=== PATIENT | female | born 1995 | race Caucasian/White ===

== ENCOUNTER 2021-05-19 08:31 | Emergency (ER) | payer OTHER, SELFPAY ==
--- NOTE | 2021-05-19 08:32 | ED.URI ---
HPI - URI/Sore Throat General Chief Complaint: Upper Respiratory Infection Stated Complaint: sore throat Time Seen by Provider: 05/19/21 08:45 Source: patient Mode of arrival: ambulatory Limitations: no limitations History of Present Illness HPI Narrative: Ms. Van is a 25-year-old female patient presenting to the clinic today with complaints of sore throat x1 day. She reports this started approximately about 230 this morning. Is having pain with swallowing mostly on the right side of her throat. Also has a fever of 38.2 ?C today in the clinic. She denies drooling or any difficulty swallowing however it is very painful. No known exposure to strep pharyngitis. She denies any cough or nasal drainage. Denies any known exposure to influenza or Covid. MD elicited complaint: fever and sore throat Related Data Allergies Allergy/AdvReac Type Severity Reaction Status Date / Time No Known Allergies Allergy Verified 05/19/21 08:51 Review of Systems Review of Systems: Pertinent positives per HPI. Patient denies any rash, headache, visual changes, dizziness, cough, shortness of breath, chest pain, palpitations, nausea, vomiting, diarrhea, constipation, abdominal pain, or any urinary issues. PMFSH Comments At the time of my signature, I reviewed and agree with the nursing past medical, surgical, social, and family history. There is no relevant family history pertinent to the patient complaint. Exam Narrative: General: Well-developed, overweight, in no apparent distress Head: Normocephalic, atraumatic Eyes: Pupils equally round and reactive to light bilaterally, EOM intact, sclera and conjunctive clear, no discharge, lids normal Ears: TMs intact and clear, ear canals clear, no drainage, grossly hearing normal. Nose: Nares patent, no discharge, no inflammation, no sinus tenderness. Mouth: Oral pharynx without lesions or masses, good dentition, MMM. Oropharynx red, 2+ bilateral tonsillar swelling with exudate to the right tonsil. Uvula midline and has even rise and fall. Centor criteria 3 out of 4. Neck: Supple, trachea midline, no palpable enlargement of anterior or posterior cervical nodes, no thyroid masses or goiter palpable. Cardio: Regular rate and rhythm, s1 and s2 normal, no murmur appreciated. Resp: Clear to auscultation bilaterally, no rhonchi, rales, wheezing or rubs Course Course Emergency Course: Portions of this record may have been created with voice recognition software. Level of Care: Express Care Visit Vital Signs Vital signs: Vital signs reviewed MDM - URI/Sore Throat MDM Narrative Medical decision making narrative: At the time of assessment patient appears mildly ill. Has muffled voice and is complaining of a severe sore throat. She does have a fever in the clinic today no known exposure to anyone with Covid or influenza. Reports that her daughter is also home sick with a sore throat. Centor criteria was 3 out of 4 so a strep screen was obtained and was positive. Patient was given a shot of Rocephin 1 g IM in the clinic and was given a prescription for amoxicillin to take at home. Supportive measures was discussed with patient and she voiced understanding. Differential Diagnosis Differential diagnosis: Likely upper respiratory infection, otitis media, sinusitis, viral infection, influenza and pharyngitis Discharge Plan Discharge Clinical Impression: Acute streptococcal pharyngitis Patient Disposition: Home, Self-Care Condition: Stable Instructions: Antibiotic Form, Strep Throat (ED) Additional Instructions: Take prescription medications only as prescribed Rocephin 1 g IM given in the clinic today Start amoxicillin tonight at 9pm. Change toothbrush in 24 hours after the start of the antibiotic. Increase fluids and stay well hydrated Tylenol/motrin for pain/fever Cepacol spray, cough drops, throat lozenges, warm tea with honey/lemon, gargle salt water to soothe throat May re
[2021-05-19 08:42] VITALS: BP 141/65; PULSE 95; RESP 16; TEMP 38.2; O2SAT 99
[2021-05-19] MEDS: cefTRIAXone 1 GM, LIDOCAINE HCL 1% LOCAL INJ 2.1 ML IM (09:01)
== END 2021-05-19 09:27 | disposition home or self-care (01) ==
PROVIDERS: Emergency Provider Nurse Practitioner Family
DX: J02.0 Streptococcal pharyngitis (principal)
CPT/HCPCS: 87880; 96372; 99213; G0463; J0696

== ENCOUNTER 2021-06-06 04:32 | Emergency (ER) | payer OTHER, SELFPAY ==
[2021-06-06 04:39] VITALS: BP 126/77; PULSE 90; RESP 16; TEMP 36.1; O2SAT 100
--- NOTE | 2021-06-06 04:55 | PC.NURSE ---
ERP in to examine pt. Explained that due to issues with the tendon an x-ray would be unable to show what was happening to the ankle. Pt asked how she could get an MRI. RN explained that process goes through occupational health at work as well as a primary physician. Pt still tearful at this time.
--- NOTE | 2021-06-06 04:56 | ED_ITS ---
HPI - Extremity Injury (Lower) General Chief Complaint: Extremity Injury, Lower Stated Complaint: L Heel injury Time Seen by Provider: 06/06/21 04:42 Source: patient Mode of arrival: ambulatory Limitations: no limitations History of Present Illness HPI Narrative: Patient is a 35-year-old female complaining of left Achilles tendon pain, 10, dull, aching, nonradiating started after a box fell on it this morning at work. Patient denies any other pain or injury. Patient states that she had a left Achilles tendon surgery back in 2013. Related Data Allergies Allergy/AdvReac Type Severity Reaction Status Date / Time No Known Allergies Allergy Verified 06/06/21 04:45 Review of Systems Review of Systems: Per HPI All systems reviewed & are unremarkable except as noted in HPI and below PMFSH Comments Past medical history: None Family history: Unknown Social history: Non-smoker no EtOH or drug use Exam Const: General: no acute distress and alert Orientation/consciousness: patient oriented x3 HENMT: Head: normal to inspection Eyes: Conjunctivae: conjunctivae normal Neck: Neck: normal visual inspection Resp: Effort & Inspection: normal respiratory effort Skin: General skin exam: normal color Rashes: no rashes Neuro: General: patient oriented x3 and moves all extremities Extrem: General: normal to inspection Other: No deformity of the left lower extremity. Negative for any swelling or redness of the left lower extremity. Negative for calf pain or swelling. Tenderness on palpation of the left Achilles tendon. Neurovascular is intact. Course Vital Signs Vital signs: Vital Signs Temperature 36.1 C L 06/06/21 04:39 Pulse Rate 90 06/06/21 04:39 Respiratory Rate 16 06/06/21 04:39 Blood Pressure 126/77 06/06/21 04:39 Pulse Oximetry 100 06/06/21 04:39 Temperature 36.1 C L 06/06/21 04:39 Pulse Rate 90 06/06/21 04:39 Respiratory Rate 16 06/06/21 04:39 Blood Pressure 126/77 06/06/21 04:39 Pulse Oximetry 100 06/06/21 04:39 Discharge Plan Discharge Clinical Impression: Achilles tendon injury Patient Disposition: Home, Self-Care Condition: Stable Instructions: Muscle Strain (ED) Prescriptions: New cyclobenzaprine 10 mg tablet 10 mg PO TID PRN (Reason: muscle spasm) Qty: 9 RF: 0 naproxen [Naprosyn] 500 mg tablet 500 mg PO BID PRN (Reason: pain) Qty: 10 RF: 0 No Action amoxicillin 500 mg capsule 500 mg PO Q12H 10 Days Qty: 20 RF: 0 Follow-up/Referrals: PHYSICIAN,PAINT SPRAYING MACHINE OPERATOR HELPER [Primary Care Provider] - Time of Disposition: 05:00
== END 2021-06-06 05:16 | disposition home or self-care (01) ==
PROVIDERS: Emergency Provider Emergency Medicine
DX: S86.002A Unspecified injury of left Achilles tendon, initial encounter (principal); W20.8XXA Other cause of strike by thrown, projected or falling object, initial encounter
CPT/HCPCS: 99283

== ENCOUNTER 2022-09-12 18:48 | Emergency (ER) | payer BC, MEDICAID, SELFPAY ==
[2022-09-12 18:52] VITALS: BP 119/72; PULSE 64; RESP 18; TEMP 36.3; O2SAT 100
== END 2022-09-12 19:00 | disposition left against medical advice (07) ==
DX: R23.3 Spontaneous ecchymoses (principal)
CPT/HCPCS: 99199

== ENCOUNTER 2024-09-12 19:17 | Emergency (ER) | payer OTHER, SELFPAY ==
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
--- NOTE | 2024-09-12 19:26 | PC.NURSE ---
Pt visualized dancing in the room, yelling at staff stating you can't touch me repeatedly.
--- OUTSIDE RECORDS SUMMARY | 2024-09-12 19:33 | XMS_ITS | Patient Health Record ---
Author Organization [facility] Address [address] [place] [address] Care Team Providers Care Global Marketing Coordinator Name Role Phone FernandasangLuisito streetie Primary Care Provider [phone] Allergies No Known Allergies Reason For Referral No Information Medications Medication SIG (Take, Route, Frequency, Duration) [...] her please. Thank you Active Social History Tobacco Use: Social History Observation Description Date Details (start date - stop date) Unknown Sex Assigned At : Social History Observation Description Sex Assigned At Female Dont use, Tobacco Use/Smoking Question Answer Notes Are you a Uses tobacco in other forms Additional Findings: Tobacco User e-Cigarette Alcohol Screen (Audit-C) Question Answer Notes Did you have a drink containing alcohol in the p ast year? No Section Notes: PRESCRIPTION # FILLED WRITTEN DRUG LABEL QTY DAYS STRENGTH MEDD PRESCRIBER PHARMACY REFILL NO. REFILLS STATE 12/22/2021 11/17/2021 Pregabalin 60.0 30 75 MG NA Sanzalone Magdy S Md - [id number] [id number], [place], [place] NA 5 [place] 1 [id number] 11/17/2021 11/17/2021 Pregabalin 60.0 30 75 MG NA Valerie Ruggiero [id number] PRESCRIPTION # FILLED WRITTEN DRUG LABEL QTY DAYS STRENGTH MEDD PRESCRIBER PHARMACY REFILL NO. REFILLS STATE 12/22/2021 11/17/2021 Pregabalin 60.0 30 75 MG NA Valerie Ruggiero [id number] [id number], [place], [place] NA 5 [place] 1 [id number] 11/17/2021 11/17/2021 Pregabalin 60.0 30 75 MG NA Valerie Ruggiero [id number] [place] recent [place] Problems Problem Type SNOMED Code ICD Code Onset Dates Problem Status W/U Status Risk Notes Problem Morbid obesity (disorder) (411241431) Morbid (severe) obesity due to excess calories (E66.01) Active confirmed Problem Tobacco user (058218071) Nicotine dependence, unspecified, uncomplicated (F17.200) Active confirmed Problem Calcium deposits in tendon (671799242) Calcific tendinitis, 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) Active confirmed Problem Gastroesophageal reflux disease (698359433) GERD (gastroesophagea l reflux disease) (K21.9) Active confirmed Problem Vitamin D deficiency (85862429) Vitamin D insufficiency (E55.9) Active confirmed Problem Anxiety (03673103) Anxiety (F41.9) Active confi rmed Problem Pain (44138622) Pain (R52) Active confirmed Problem Follow-up status (962319726) Follow up (Z09) Active confirmed Problem Obesity (095042093) Obesity, unspecified classification, unspecified obesity type, unspecified whether serious comorbidity present (E66.9) Active confirmed Problem Calcaneal spur (88938010) Calcaneal spur, left (M77.32) Active confirmed Plan Of Treatment No Information Insurance Providers Payer Name Payer Address Payer Phone Subscriber Number Group Number Insured Name Patient Relationship to Insured Coverage Start Date Coverage End Date MEDICAID [address] [place] [address] [id number] Lelo Mcintosh Self - patient is the insured 2 [facility] [employer] [address] [place] [phone] [id number] Lelo Mcintosh Self - patient is the insured 2 2 [facility] [employer] Tele[employer] [address] [place] [address] [id number] Lelo Mcintosh Self - patient is the insured 2 2 [employer] [address] [place] [address] [id number] Lelo Mcintosh Self - patient is the insured 2 [facility] [address] [place] [address] [id number] Lelo Mcintosh Self - patient is the insured 4 4 Medical (General) History Medical History History ICD Code pain achilles tendinitis Surgical History Surgery Date(Month/Year) Tubal ligation 2016 Hospitalization History Reason Date(Month/Year) Child 2013, 2016 Depression 2018
--- OUTSIDE RECORDS SUMMARY | 2024-09-12 19:33 | XMS_ITS ---
Author Organization [facility] Address [address] [place] [address] Care Team Providers Care Operator And Truck Driver Name Role Phone Hoda Bradley Primary Care Provider [phone] REASON FOR VISIT last seen 07/2022; needs 40 min Social History Sex Assigned At : Social History Observation Description Sex Assigned At Female Encounters Encounter Location Date Provider Diagnosis [facility] [address] [address] 08/20/2024 Hoda Bradley Plan Of Treatment No Information Progress Notes * Lelo MCINTOSHDOB: [birth year] (29 yo F)Acc No.[id number]:08/20/2024 UNLOCKED PROGRESS NOTE Progress Notes Patient: Lelo CHAIDEZ Provider: ADOLFO Escobedo, PAPER GOODS MACHINE OPERATOR, END USER SUPPORT SPECIALIST-BC, END USER SUPPORT SPECIALIST-C :1995 A ge:29 Y S ex:Female Date:08/20/2024 Address:[address] [place] [address] Subjective: * Chief Complaints: * 1 . Last seen 07/2022; needs 40 min. * Medical History: Objective: * Vitals: Assessment: Plan: * Treatment: * * Electronic signature of Sarthak Bradley APRN, [id number] on 09/12/2024 at 07:33 PM CDT Sign off status: Pending * Provider: Venkata Bradley, MSN, PAPER GOODS MACHINE OPERATOR, END USER SUPPORT SPECIALIST-BC, END USER SUPPORT SPECIALIST-C Date: 0 08/20/2024 Generated for Printing/Faxing/eTransmitting on: 0 09/12/2024 07:33 PM CDT
--- OUTSIDE RECORDS SUMMARY | 2024-09-12 19:33 | XMS_ITS ---
Author Organization [facility] Address [address] [place] [address] Care Team Providers Care Tool Room Attendant Name Role Phone Hoda Bradley Primary Care Provider [phone] Jessica Anne Unavailable [phone] REASON FOR VISIT 1 Month Psych F/U [...] Female Encounters Encounter Location Date Provider Diagnosis [address] [address] 06/22/2023 Jessica Anne Plan Of Treatment No Information Progress Notes * Lelo MCINTOSHDOB: [birth year] (29 yo F)Acc No.[id number]:06/22/2023 UNLOCKED PROGRESS NOTE Patient: Mel RICELelo HORVATH Provider: Hoa Anne, MSN, SERVER SERVICE ASSISTANT-, [facility] :1995 A ge:27 Y S ex:Female Date:06/22/2023 Address:[address] [place], [place] [id number] Pcp:Hoda Bradley Subjective: * Chief Complaints: * [...] * Electronic signature of Jessica Anne , [id number] on 09/12/2024 at 07:33 PM CDT Sign off status: Pending * Provider: ADOLFO Guajardo, SERVER SERVICE ASSISTANT-, PMHNP- Date: 0 06/22/2023 Generated for Durga domínguez/Karlos/Anthony on: 0 09/12/2024 07:33 PM CDT
--- OUTSIDE RECORDS SUMMARY | 2024-09-12 19:33 | XMS_ITS | Clinical Summary ---
Author Organization [facility] Address [address] [place] [address] Care Team Providers Care Corrosion Technician Name Role Phone Tiara Pacheco MD Primary Care Provider [phone] Tiara Pacheco MD Unavailable Source Comments [facility],non-owned Affiliates and Associated Physician Practices is amultiple site organization consisting of ambulatory clinics and hospital sitesin [place], [place], [place] and [place]. This disclosure is being madepursuant to the Care Everywhere program and may not contain all information available regarding this patient. Last updated 17.[facility] Allergies No known active allergies Medications * Be aware that medications may not be up to date on this document. Alwaysverify current medications with the patient. lurasidone (LATUDA) 80 MG tablet Take 50 mg by mouth daily with breakfast Active sertraline (ZOLOFT) 100 MG tablet Take 150 mg by mouth once daily Active lithium carbonate (LITHOTABS) 300 MG tablet Take 300 mg by mouth 3 times daily Active traZODone (DESYREL) 50 MG tablet Take 50 mg by mouth at bedtime Active Active Problems Problem Noted Date Diagnosed Date Overdose, drug 08/23/2010 Overview (08/24/2010): Pt is transferred from OSH ([facility]) after taking an intentional overdose last night of her Geodon (about 10-15 pills taken) and of Tegretol (20- 30 pills). Her UDS also was positive for TCAs, but pt denies taking these and mom denies her having access to any of these meds and poision control confirmed that this could be false positive from tegretol. Pt denies having suicidal or homicidal ideation or plans at this time, but says she did want to kill herself last night. Tegretol can cause neuromuscular symptoms and dystonias and has a half life of 25-65 hrs. Tegretol can be measured with a carbamazepine level (20 at OSH) and 18 last evening and 9.8 this am. Geodon can cause a rise in LFTs and has a half life of 7 hours. Pt appears to be medically stable this morning. She will be transferred to [facility] today and be under the care of her psychiatrist, Dr. Underwood. Plan: -social work and psych to see her in the AM to determine group home plan- mom does not want to bring her home at first- social work and psych working on placement - Sitter 24hrs until discharge - CMP, CBC, Carbazapine level and EKG in the AM to monitor for any side effects from the overdose- levels are decreased and lab work is all normal as is EKG -Spoke with the lab and positive TCA can be caused by tegretol ingestion, which explains the UDS - benadryl PRN for dystonias - UA with culture due to belly pain and elevated wbc- WBC could be related to drug overdose- UA looks ok, so culture not done Family History Medical History Relation Name Comments Bipolar Disorder Maternal Aunt Relation Name Status Comments Maternal Aunt Social History Tobacco Use Types Packs/Day Years Used Date Smoking Tobacco: Former Smokeless Tobacco: Never Alcohol Use Standard Drinks/Week Comments No 0 (1 standard drink = 0.6 oz pur e alcohol) Comments No Sex and Gender Information Value Date Recorded Sex Assigned at Not on file Legal Sex Female 11:59 AM LAP GRINDER Gender Identity Female 01/23/2018 12:21 PM LAP GRINDER Sexual Orientation Not on file Last Filed Vital Signs Vital Sign Reading Time Taken Comments Blood Pressure 110/76 01/23/2018 1:02 PM LAP GRINDER Pulse 79 01/23/2018 1:02 PM LAP GRINDER Temperature 36.8 C (98.2 F) 01/23/2018 1:02 PM LAP GRINDER Respiratory Rate 18 01/23/2018 1:02 PM LAP GRINDER Oxygen Saturation 99% 01/23/2018 1:02 PM LAP GRINDER Inhaled Oxygen Concentration - - Weight 98.4 kg (217 lb) 01/23/2018 1:02 PM LAP GRINDER Height 162.6 cm (5' 4) 01/23/2018 1:02 PM LAP GRINDER Body Mass Index 37.25 01/23/2018 1:02 PM LAP GRINDER Plan of Treatment Health Maintenance Due Date Last Done Comments HIV SCREENING 2009 HEPATITIS C SCREENING 07/25/2012 DTAP/TDAP/TD VACCINES (1 - Tdap) 2013 HEPATITIS B VACCINE (1 of 3 - 19+ 3-dose series) 2013 HPV VACCINE (1 - 3-dose SCDM series) 2021 COVID-19 VACCINE (1 - 2023-2 5 season) 2023 DEPRESSION SCREENING 02/14/2024 INFLUENZA VACCINE (#1) 2024 ZOSTER VACCINE (1 of 2) 2044 HIB VACCINE Aged Out No longer eligi ble based on patient's age to complete this topic MENINGOCOCCAL (Group B) VACC INE SHARED DECISION-MAKING Aged Out No longer eligibl e based on patient's age to complete this topic MENINGOCOCCAL GROUPS A/C/Y/W VACCINE Aged Out No longer eligible b ased on patient's age to complete this topic PNEUMOCOCCAL VACCINE Aged Out No long er eligible based on patient's age [place] [address] [place] [facility] PAYOR GENERIC Care Teams Corrosion Technician Relationship Specialty Start Date End Date Tiara Pacheco MD [address] [place] [address] PCP - General 04/15/21 Tiara Pacheco MD [address] [place] [id number] Family Medicine 04/15/21
--- OUTSIDE RECORDS SUMMARY | 2024-09-12 19:33 | XMS_ITS ---
Author Organization [facility] Address [address] [place] [address] Care Team Providers Care Production Supervisor Trainee Name Role Phone Hoda Bradley Primary Care Provider [phone] Jessica Anne Unavailable [phone] REASON FOR VISIT 1 Month Psych F/U [...] Female Encounters Encounter Location Date Provider Diagnosis [address] [place] [address] 08/21/2023 Jessica Anne Plan Of Treatment No Information Progress Notes * Lelo MCINTOSHDOB: [birth year] (29 yo F)Acc No.[id number]:08/21/2023 UNLOCKED PROGRESS NOTE Patient: Mel Lelo MORRISON Provider: Hoa Anne, MSN, TRACTOR DRIVER TEAMSTER-, P[facility]- :1995 A ge:28 Y S ex:Female Date:08/21/2023 Address:[address] [place], [place] [id number] Pcp:Hoda Bradley Subjective: * Chief Complaints: * [...] * Electronic signature of Jessica Anne , [id number] on 09/12/2024 at 07:33 PM CDT Sign off status: Pending * Provider: ADOLFO Guajardo, TRACTOR DRIVER TEAMSTER-, PMHNP- Date: 0 08/21/2023 Generated for Durga domínguez/Karlos/Anthony on: 09/12/2024 07:33 PM CDT
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
--- NOTE | 2024-09-12 21:24 | PC.NURSE ---
pt was A+Ox4 and walked out of ED with a steady gait
== END 2024-09-12 21:39 | disposition home or self-care (01) ==
PROVIDERS: Emergency Provider Emergency Medicine
DX: F10.129 Alcohol abuse with intoxication, unspecified (principal); Y90.9 Presence of alcohol in blood, level not specified
CPT/HCPCS: 99283; J2312

== ENCOUNTER 2024-11-15 08:51 | Emergency (ER) | payer OTHER, SELFPAY ==
--- OUTSIDE RECORDS SUMMARY | 2023-06-19 05:20 | XMS_ITS ---
Author Organization [facility] Address [address] [place] [address] Care Team Providers Care Insect Control Aide Name Role Phone Hoda Bradley Primary Care Provider Jessica Anne Unavailable [phone] REASON FOR VISIT 1 Month Psych F/U & Med Refill Social History Sex Assigned At : Social History Observation Description Sex Assigned At Female Encounters Encounter Location Date Provider Diagnosis [address] [address] 06/19/2023 Jessica Anne Plan Of Treatment Next Appt Details Provider Name:Dena Sandy Marr va, 11/19/2024 10:00:00 AM, [address] [place] [address], [address], Progress Notes * Lelo MCINTOSHDOB: [birth year] (29 yo F)Acc No.[id number]:06/19/2023 UNLOCKED PROGRESS NOTE Patient: Mel MORRISON Lelo Provider: Hoa Anne, MSN, LIBRARY CONSULTANT-BC, PMHNP-BC :1995 A ge:27 Y S ex:Female Date:06/19/2023 Address:[address] [place] [address] Pcp:Hoda Bradley Subjective: * Chief Complaints: * 1 . 1 Month Psych F/U & Med Refill. * Medical History: Objective: * Vitals: Assessment: Plan: * Treatment: * * Electronic signature of Jessica Anne , [id number] on 11/15/2024 at 09:32 AM CDT Sign off status: Pending * Provider: Hoa Anne, MSN, LIBRARY CONSULTANT-BC, PMHNP-BC Date: 0 06/19/2023 Generated for Durga domínguez/Karlos/Anthony on: 1 09:32 AM CDT
--- OUTSIDE RECORDS SUMMARY | 2023-06-22 03:20 | XMS_ITS ---
Author Organization formerly [facility] Address [address] [place] [address] Care Team Providers Care Rehab Liaison Name Role Phone Hoda Bradley Primary Care Provider [phone] Jessica Anne Unavailable [phone] REASON FOR VISIT 1 Month Psych F/U & Med Refill Medications Medication SIG (Take, Route, Frequency, Duration) Notes Start Date End Date Status Zoloft 100 MG 1 tablet (for a total of 150mg) Orally Once a day; Duration: 30 days Pt is requesting the medications to be mailed to her please. Thank you Active Vistaril 50 MG 1 capsule as needed Orally four times a day as needed for anxiety; Duration: 30 days Pt is requesting the medications to be mailed to her please. Thank you Active Zoloft 50 MG 1 tablet (for a total of 150mg) Orally Once a day; Duration: 30 days Pt is requesting the medications to be mailed to her please. Thank you Active Propranolol HCl 20 MG 1 tablet Orally Twice a day; Duration: 30 days Pt is requesting the medications to be mailed to her please. Thank you Active Social History Sex Assigned At : Social History Observation Description Sex Assigned At Female Encounters Encounter Location Date Provider Diagnosis [facility] [address] [place] [address] 06/22/2023 Jessica Anne Plan Of Treatment Next Appt Details Provider Name:Dena Marr nd, 11/19/2024 10:00:00 AM, [address], [place], [address], Progress Notes * Lelo MCINTOSHDOB: [birth year] (29 yo F)Acc No.[id number]:06/22/2023 UNLOCKED PROGRESS NOTE Patient: Lelo CHAIDEZ Provider: Hoa Anne, MSN, PROFESSIONAL NURSE-BC, PMHNP-BC :1995 A ge:27 Y S ex:Female Date:06/22/2023 Address:[address] [place] [address] Pcp:Hoda Bradley Subjective: * Chief Complaints: * 1 . 1 Month Psych F/U & Med Refill. * Medical History: * Medications: T aking Zoloft 100 MG Tablet 1 tablet (for a total of 150mg) Orally Once a day , Notes to Pharmacist: Pt is requesting the medications to be mailed to her please. Thank you, Taking Vistaril 50 MG Capsule 1 capsule as needed Orally four times a day as needed for anxiety , Notes to Pharmacist: Pt is requesting the medications to be mailed to her please. Thank you, Taking Zoloft 50 MG Tablet 1 tablet (for a total of 150mg) Orally Once a day , Notes to Pharmacist: Pt is requesting the medications to be mailed to her please. Thank you, Taking Propranolol HCl 20 MG Tablet 1 tablet Orally Twice a day , Notes to Pharmacist: Pt is requesting the medications to be mailed to her please. Thank you Objective: * Vitals: Assessment: Plan: * Treatment: * * Electronic signature of Jessica Anne , [id number] on 11/15/2024 at 09:32 AM CDT Sign off status: Pending * Provider: ADOLFO Guajardo, PROFESSIONAL NURSE-BC, PMHNP-BC Date: 0 06/22/2023 Generated for Durga domínguez/Karlos/Anthony on: 1 09:32 AM CDT
--- OUTSIDE RECORDS SUMMARY | 2023-08-21 10:40 | XMS_ITS ---
Author Organization [facility] Address [address] [place] [address] Care Team Providers Care Basket Filler Name Role Phone Hoda Bradley Primary Care Provider [phone] Jessica Anne Unavailable [phone] REASON FOR VISIT 1 Month Psych F/U & Med Refill Medications Medication SIG (Take, Route, Frequency, Duration) Notes Start Date End Date Status Propranolol HCl 20 MG 1 tablet Orally Twice a day; Duration: 30 days Pt is requesting the medications to be mailed to her please. Thank you Active Vistaril 50 MG 1 capsule as needed Orally four times a day as needed for anxiety; Duration: 30 days Pt is requesting the medications to be mailed to her please. Thank you Active Zoloft 100 MG 1 tablet (for a [...] Female Encounters Encounter Location Date Provider Diagnosis [facility] [address] [place] [address] 08/21/2023 Jessica Anne Plan Of Treatment Next Appt Details Provider Name:Dena Marr la, 11/19/2024 10:00:00 AM, [address], [place], [address], Progress Notes * Lelo MCINTOSHDOB: [birth year] (29 yo F)Acc No.[id number]:08/21/2023 UNLOCKED PROGRESS NOTE Patient: Lelo CHAIDEZ Provider: Hoa Anne, MSN, LEADERSHIP RECRUITER-BC, PMHNP-BC :1995 A ge:28 Y S ex:Female Date:08/21/2023 Address:[address] [place] [phone] Pcp:Hoda Bradley Subjective: * Chief Complaints: * 1 . 1 Month Psych F/U & Med Refill. * Medical History: * Medications: T aking Vistaril 50 MG Capsule 1 capsule as [...] to her please. Thank you, Taking Zoloft 100 MG Tablet 1 tablet (for a total of 150mg) Orally Once a day , Notes to Pharmacist: Pt is requesting the medications to be mailed to her please. Thank you Objective: * Vitals: Assessment: Plan: * Treatment: * * Electronic signature of Jessica Anne , [id number] on 11/15/2024 at 09:32 AM CDT Sign off status: Pending * Provider: ADOLFO Guajardo, LEADERSHIP RECRUITER-BC, PMHNP-BC Date: 0 08/21/2023 Generated for Durga domínguez/Karlos/Anthony on: 1 09:32 AM CDT
--- OUTSIDE RECORDS SUMMARY | 2024-08-20 04:40 | XMS_ITS ---
Author Organization [facility] Address [address] [place] [address] Care Team Providers Care Home School Liaison Officer Name Role Phone Hoda Bradley Primary Care Provider REASON FOR VISIT last seen 07/2022; needs 40 min Social History Sex Assigned At : Social History Observation Description Sex Assigned At Female Encounters Encounter Location Date Provider Diagnosis [facility] [address] [place] [address] 08/20/2024 Hoda Bradley Plan Of Treatment Next Appt Details Provider Name:Dena Marr ny, 11/19/2024 10:00:00 AM, [address] [place], [address], Progress Notes * Lelo MCINTOSHDOB: [birth year] (29 yo F)Acc No.[id number]:08/20/2024 UNLOCKED PROGRESS NOTE Progress Notes Patient: Mel RICEALEXANDRU Lelo Provider: Venkata Bradley, MSN, FRONT ELEVATOR OPERATOR, REPAIRER WELDING EQUIPMENT-BC, REPAIRER WELDING EQUIPMENT-C :1995 A ge:29 Y S ex:Female Date:08/20/2024 Address:[address] [place] [address] Subjective: * Chief Complaints: * 1 . Last seen 07/2022; needs 40 min. * Medical History: Objective: * Vitals: Assessment: Plan: * Treatment: * * Electronic signature of Sarthak Bradley , [place], [id number] on 11/15/2024 at 09:31 AM CDT Sign off status: Pending * Provider: Venkata Bradley, MSN, FRONT ELEVATOR OPERATOR, REPAIRER WELDING EQUIPMENT-BC, REPAIRER WELDING EQUIPMENT-C Date: 0 08/20/2024 Generated for Printing/Faxing/eTransmitting on: 1 09:31 AM CDT
[2024-11-15] VITALS (16 sets, daily range): BP systolic 97–133; BP diastolic 59–90; PULSE 65–90; RESP 16–34; TEMP 36.8–36.9; O2SAT 98–100
--- NOTE | ~2024-11-15 | CT_ITS ---
EXAMINATION: CT brain wo con COMPARISON: None HISTORY: seizure TECHNIQUE: Axial images were obtained through the brain without IV contrast. CT scan performed using dose optimization techniques including the following automated exposure control; adjustment of mA and/or kV; use of iterative reconstruction technique. Automatic exposure control was used to reduce radiation dose. Permanent radiation dose record is archived to PACS. FINDINGS: No acute infarct or parenchymal hemorrhage. No abnormal mass or mass effect. No midline shift. No extra-axial fluid collections. No hydrocephalus. . Mastoid air cells unremarkable. Sinuses and orbits unremarkable. No acute fracture. No significant facial or scalp soft tissue swelling evident. No radiopaque foreign body is seen. Impression: 1.No acute intracranial abnormality. Reviewed, dictated and finalized at location P. Impression: 1.No acute intracranial abnormality.
--- NOTE | 2024-11-15 09:21 | ED.GENADULT ---
HPI - General Adult General Chief complaint: Seizure Stated complaint: seizure Time Seen by Provider: 11/15/24 09:07 History of Present Illness HPI narrative: 29-year-old female presents to the emergency department for evaluation for seizure-like activity. Patient was at the [facility] today when she began feeling ill and was felt she is going to pass out. [place] at the [facility] told EMS the patient began having seizure-like activity while she was in the sitting position. Patient was not observed to be hitting her head and did not have full loss of consciousness. Patient states she does not have a history of seizures but she was recently started on venlafaxine for PTSD. patient states she has had multiple seizures since then. Patient reports her 1st dose of the medication was yesterday. Patient does have history of anxiety depression PTSD alcohol abuse and marijuana use. Patient states that the venlafaxine is court mandated. Related Data Allergies Allergy/AdvReac Type Severity Reaction Status Date / Time No Known Allergies Allergy Verified 06/06/21 04:45 Review of Systems Review of Systems: All systems reviewed & are unremarkable except as noted in HPI and below Exam Narrative: APPEARANCE: Well-appearing HEAD: normocephalic, atraumatic. EYES: PERRLA/EOMI, conjunctivae clear. NOSE: Normal no drainage EARS:TMS clear with good light reflex. THROAT: Pharynx clear, no exudate. NECK: Supple. No adenopathy, no masses. RESPIRATORY: Airway patent, respirations nonlabored. Clear to auscultation bilaterally, no rales, rhonchi, wheezing. CARDIOVASCULAR: Regular rate and rhythm without murmurs rubs or gallops. ABDOMINAL: Soft, nontender, nondistended, normal bowel sounds MUSCULOSKELETAL: Moves all extremities. Strength/ROM intact, No edema, No calf tenderness. NEURO: Alert. Cranial nerves II through XII intact. Good gait. Good coordination SKIN: Warm, dry. Normal Color Course Vital Signs Vital signs: Vital Signs Temperature 98.5 F 11/15/24 08:48 Pulse Rate 83 11/15/24 08:48 Respiratory Rate 17 11/15/24 08:48 Blood Pressure 116/72 11/15/24 08:48 Pulse Oximetry 100 11/15/24 08:48 Oxygen Delivery Room Air 11/15/24 08:48 Temperature 98.2 F 11/15/24 12:37 Pulse Rate 84 11/15/24 12:37 Respiratory Rate 18 11/15/24 12:37 Blood Pressure 123/86 11/15/24 12:37 Pulse Oximetry 100 11/15/24 12:37 Oxygen Delivery Room Air 11/15/24 09:15 Medical Decision Making MDM Narrative Medical decision making narrative: 29-year-old female presenting to the emergency department from the [facility] for evaluation of seizure-like activity. I was called to the room for seizure-like activity and patient was having some upper body movements that were not epileptic in nature. I did a sternal rub and patient in the ED immediately grabbed my hand and told me I had caused a bruise on her chest and then patient went back to the twitching activity. Patient was then coached to slow down her breathing and patient did improve. On re-evaluation patient states she does feel improved. Patient attributes her symptoms to the venlafaxine and states that she will no longer be taking this. I did advise the patient to communicate this to chest not as patient states that this was court mandated that she take this medication. Differential Diagnosis Differential Diagnosis: Adverse drug reaction, subdural hematoma, subarachnoid hemorrhage, seizure, nonseptic seizure Vital Signs Vital Signs: Vital Signs Temperature 98.5 F 11/15/24 08:48 Pulse Rate 83 11/15/24 08:48 Respiratory Rate 17 11/15/24 08:48 Blood Pressure 116/72 11/15/24 08:48 Pulse Oximetry 100 11/15/24 08:48 Oxygen Delivery Room Air 11/15/24 08:48 Temperature 98.2 F 11/15/24 12:37 Pulse Rate 84 11/15/24 12:37 Respiratory Rate 18 11/15/24 12:37 Blood Pressure 123/86 11/15/24 12:37 Pulse Oximetry 100 11/15/24 12:37 Oxygen Delivery Room Air 11/15/24 09:15 Lab Data Lab results reviewed: Yes I reviewed the patient's lab results. 11/15/24 09:31 11/15/24 09:31 Labs: Lab Results 11/15/24 11/15/24 11/15/24 Range/Units 09:31 11:45 11:47 WBC 11.6 H (4.5-10.0) K/mm3 RBC 5.37 (4.2-5.4) M/mm3 Hgb 16.1 H (12.0-15.0) g/dL Hct 47.2 H (37.0-47.0) % MCV 87.9 (80-100) fl MCH 30.0 (26-34) pg MCHC 34.1 (32-36) g/dl RDW 12.7 (11.5-14.5) % Plt Count 273 (150-375) k/mm3 MPV 10.2 (7.4-10.4) fl Immature Gran % (Auto) 0.3 (0-0.5) % Neut % (Auto) 76.1 H (45.5-73.1) % Lymph % (Auto) 16.1 L (18.3-44.2) % [place] % (Auto) 6.6 (2.6-8.5) % Eos % (Auto) 0.3 (0-4.4) % Baso % (Auto) 0.6 (0.2-1.2) % Lymph # (Auto) 1.87 (0.9-3.2) K/mm3 [place] # (Auto) 0.8 H (0.1-0.6) K/mm3 Eos # (Auto) 0.0 (0-0.3) K/mm3 Baso # (Auto) 0.1 (0.0-0.1) K/mm3 Abs Immat Gran (auto) 0.04 H (0.00-0.031) K/mm3 Absolute Neuts (auto) 8.8 H (1.3-6.7) K/mm3 Absolute Nucleated RBC 0.000 (0.0-0.012) K/mm3 Nucleated RBC % 0.0 (0.0-0.2) % PT 13.1 (11.1-14.7) Seconds INR 1.0 APTT 31.1 (22.3-36.8) Seconds Sodium 137 (137-145) mmol/L Potassium 3.8 (3.4-5.0) mmol/L Chloride 104 (98-107) mmol/L Carbon Dioxide 21 L (22-30) mmol/L Anion Gap 12 (4-12) mmol/L BUN 11 (7-17) mg/dL Creatinine 0.79 (0.7-1.0) mg/dL Estim Creat Clear Calc 98 ml/min Estimated GFR > 60 (59 - ) Glucose 125 H (65-110) mg/dL Lactic Acid 1.6 (0.7-2.0) mmol/L Calcium 9.3 (8.4-10.2) mg/dL Total Bilirubin 0.6 (0.2-1.3) mg/dL AST 22 (14-36) U/L ALT 19 (6-35) U/L Alkaline Phosphatase 74 (38-126) U/L Total Protein 8.1 (6.3-8.2) g/dL Albumin 4.6 (3.5-5.1) g/dL Urine Color Yellow (Yellow) Urine Appearance Cloudy H (Clear) Urine pH 7.0 (5.0-9.0) Ur Specific [place] 1.019 (1.001-1.035) Urine Protein Trace (Negative) mg/dL Urine Glucose (UA) Negative (Negative) mg/dL Urine Ketones 1+ H (Negative) mg/dL Ur Blood (Man) Negative (Negative) Urine Nitrate Negative (Negative) Urine Bilirubin Negative (Negative) Urine Urobilinogen 1.0 (<2.0) mg/dL Add Ur Microanalysis Reviewed Leukocyte Esterase Rfl 1+ H (Negative) ELA/UL Urine RBC 0-2 (0-2) /hpf Urine WBC 0-5 (0-3) /hpf Ur Squamous Epith Cells Few (Few) /hpf Urine Bacteria 1+ H /hpf Urine Casts 0-2 POC Urine HCG, Qual Negative (Negative) Influenza A (RT-PCR) Negative (Negative) Influenza B (RT-PCR) Negative (Negative) RSV (RT-PCR) Negative (Negative) SARS-CoV-2 RNA (RT-PCR) Negative (Negative) Imaging Data Radiologist's impression: Impressions Head CT 11/15/24 10:51 Impression: 1.No acute intracranial abnormality. Discharge Plan Discharge Clinical Impression: Adverse drug reaction, Seizure-like activity Patient Disposition: Home Condition: Stable Instructions: Antibiotic Form Additional Instructions: Have close follow-up with your primary care physician. Have close follow-up with chest nut. Patient Language: Latvian Prescriptions: No Action amoxicillin 500 mg capsule 500 mg PO Q12H 10 Days Qty: 20 0RF cyclobenzaprine 10 mg tablet 10 mg PO TID PRN (Reason: muscle spasm) Qty: 9 0RF naproxen [Naprosyn] 500 mg tablet 500 mg PO BID PRN (Reason: pain) Qty: 10 0RF Follow-up/Referrals: PHYSICIAN NOT ON STAFF,NONSTAFF [Non-Staff]
--- NOTE | 2024-11-15 09:28 | ECG_ITS ---
Test Date: 2024-11-15 08:59:12 Measurements Intervals [place] Rate: 73 P: 23 DE: 133 QRS: 12 QRSD: 89 T: 37 QT: 378 QTc: 419 Interpretive Statements SINUS RHYTHM WITH SINUS ARRHYTHMIA NORMAL ECG No previous ECG available for comparison Electronically Signed On 11-15-2024 09:47:05 CDT by Skip Starks D.O.
[2024-11-15] MEDS: diazePAM INJ (*CRX) 10 MG/2 ML SYRINGE 2 MG IV PUSH (09:29)
--- OUTSIDE RECORDS SUMMARY | 2024-11-15 09:31 | XMS_ITS | Clinical Summary ---
Author Organization [facility] Address [address] [place] [address] Care Team Providers Care Shaper Hand Name Role Phone Tiara Pacheco MD Primary Care Provider [phone] Tiara Pacheco MD Unavailable Source Comments [facility],non-owned Affiliates and Associated Physician Practices is amultiple site organization consisting of ambulatory clinics and hospital sitesin [place], [place], [place] and [place]. This disclosure is being madepursuant to the Care Everywhere program and may not contain all information available regarding this patient. Last updated 17.[facility] Allergies No known active allergies Medications * [...] Overview (08/24/2010): Pt is transferred from OSH ([facility]) after taking an intentional overdose last night [...] morning. She will be transferred to [facility] today and be under the care of her psychiatrist, Dr. Underwood. Plan: -social work and psych to see her in the AM to determine slip caster plan- mom does not want to bring [...] on file Legal Sex Female 11:59 AM DOCUMENTATION SUPERVISOR Gender Identity Female 01/23/2018 12:21 PM DOCUMENTATION SUPERVISOR Sexual Orientation Not on file Last Filed Vital Signs Vital Sign Reading Time Taken Comments Blood Pressure 110/76 01/23/2018 1:02 PM DOCUMENTATION SUPERVISOR Pulse 79 01/23/2018 1:02 PM DOCUMENTATION SUPERVISOR Temperature 36.8 C (98.2 F) 01/23/2018 1:02 PM DOCUMENTATION SUPERVISOR Respiratory Rate 18 01/23/2018 1:02 PM DOCUMENTATION SUPERVISOR Oxygen Saturation 99% 01/23/2018 1:02 PM DOCUMENTATION SUPERVISOR Inhaled Oxygen Concentration - - Weight 98.4 kg (217 lb) 01/23/2018 1:02 PM DOCUMENTATION SUPERVISOR Height 162.6 cm (5' 4) 01/23/2018 1:02 PM DOCUMENTATION SUPERVISOR Body Mass Index 37.25 01/23/2018 1:02 PM DOCUMENTATION SUPERVISOR Plan of Treatment Health Maintenance Due Date Last Done Comments HIV SCREENING 2009 HEPATITIS C SCREENING 07/25/2012 DTAP/TDAP/TD VACCINES (1 - Tdap) 2013 HEPATITIS B VACCINE (1 of 3 - 19+ 3-dose series) 2013 HPV VACCINE (1 - 3-dose SCDM series) 2021 DEPRESSION SCREENING 02/14/2024 COVID-19 VACCINE (1 - 2023-2 5 season) 2024 INFLUENZA VACCINE (#1) 2024 ZOSTER VACCINE (1 [...] [place] [address] [place] [facility] PAYOR GENERIC Care Teams Shaper Hand Relationship Specialty Start Date End Date Tiara Pacheco MD [address] [place] [address] PCP - General 04/15/21 Tiara Pacheco MD [address] [place] [phone] Family Medicine 04/15/21
--- OUTSIDE RECORDS SUMMARY | 2024-11-15 09:33 | XMS_ITS | Patient Health Record ---
Author Organization [facility] Address [address] [place] [address] Care Team Providers Care Stock Letterer Name Role Phone Hoda Bradley Primary Care Provider [phone] MaceyDena Unavailable [phone] Allergies Allergen (clinical drug ingredient) Drug/Non Drug Allergy documented on EMR Reaction Allergy Type Onset Date Status No Known Drug Allergy Unknown Drug Allergy Active Reason For Referral No Information Medications Medication SIG (Take, Route, Frequency, Duration) Notes Start Date End Date Status Venlafaxine HCl ER 37.5 MG 1 capsule wit h food Orally Once a day; Duration: 10 days 11/13/2024 Active Social History Tobacco Use: Social History Observation Description Date Details (start date - stop date) Current Smoker 09/15/2022 - NA Sex Assigned At : Social History Observation Description Sex Assigned At Female Dont use, Tobacco Use/Smoking Question Answer Notes Are you a Uses tobacco in other forms Additional Findings: Tobacco User e-Cigarette Alcohol Screen (Audit-C) Question Answer Notes Did you have a drink containing alcohol in the p ast year? No Tobacco Control (Standard) Question Answer Notes Additional Findings: Tobacco user e-ciga rette,Moderate cigarette smoker (10-19 cigs/day) Tobacco use: Current smoker When did you start smoking? 09/15/2022 How often do you smoke cigarettes? Every day How many cigarettes a day do you smoke? 6-10 How soon after you wake up d o you smoke your first cigarette? Within 5 minutes Are you interested in quitting? Thinking about q uitting Section Notes: PRESCRIPTION # FILLED WRITTEN DRUG LABEL QTY DAYS STRENGTH MEDD PRESCRIBER PHARMACY REFILL NO. REFILLS STATE 12/22/2021 11/17/2021 Pregabalin 60.0 30 75 MG NA Valerie Ruggiero [id number] [id number], [place], [place] NA 5 [place] 1 [id number] 11/17/2021 11/17/2021 Pregabalin 60.0 30 75 MG NA Valerie Ruggiero [id number] PRESCRIPTION # FILLED WRITTEN DRUG LABEL QTY DAYS STRENGTH MEDD PRESCRIBER PHARMACY REFILL NO. REFILLS STATE 12/22/2021 11/17/2021 Pregabalin 60.0 30 75 MG NA Valerie Ruggiero [id number] [id number], [place], [place] NA 5 [place] 1 [id number] 11/17/2021 11/17/2021 Pregabalin 60.0 30 75 MG NA Valerie Ruggiero [id number] [place] Problems Problem Type SNOMED Code ICD Code Onset Dates Problem Status W/U Status Risk Notes Problem Morbid obesity (disorder) (936087606) Morbid (severe) obesity due to excess calories (E66.01) Active confirmed Problem Tobacco user (169263643) Nicotine dependence, unspecified, uncomplicated (F17.200) Active confirmed Problem Calcium deposits in tendon (461708077) Calcific tendinitis, 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) Active confirmed Problem Gastroesophageal reflux disease (551025667) GERD (gastroesophagea l reflux disease) (K21.9) Active confirmed Problem Vitamin D deficiency (99882832) Vitamin D insufficiency (E55.9) Active confirmed Problem Posttraumatic stress disorder (61359875) PTSD (post-traumatic stress disorder) (F43.10) Active confirmed Problem Anxiety (83715186) Anxiety (F41.9) Active confi rmed Problem Generalized anxiety disorder (20537018) NATALI (generalized anxiety disorder) (F41.1) Active confirmed Problem Pain (06997330) Pain (R52) Active confirmed Problem Follow-up status (713243761) Follow up (Z09) Active confirmed Problem Obesity (253030193) Obesity, unspecified classification, unspecified obesity type, unspecified whether serious comorbidity present (E66.9) Active confirmed Problem Calcaneal spur (59517118) Calcaneal spur, left (M77.32) Active confirmed Problem Depressive disorder (94372288) Depressive disorder (F32.A) Active confirmed Vital Signs Height 64 in in 11/13/2024 Weight 194 lbs lbs 11/13/2024 BMI 33.3 kg/m2 11/13/2024 Encounters Encounter Location Date Provider Diagnosis [place] [address] [facility] [address] [address] [address] 11/13/2024 Dena Choudhury PTSD (post-traumatic stress disorder) F43.10 ; Depressive disorder F32.A ; NATALI (generalized anxiety disorder) F41.1 ; Nicotine dependence, unspecified, uncomplicated F17.200 and Medication management Z79.899 Assessments Encounter Date Diagnosis (ICD Code) Assessment Notes Treatment Notes Treatment Clinical Notes Section Notes 11/13/2024 PTSD (post-traumatic stress disorder) (ICD-10 - F43.10) R/O Borderline Personality Disorder 11/13/2024 Depressive disorder (ICD-10 - F32.A) R/O Borderline Personality Disorder 11/13/2024 NATALI (generalized anxiety disorder) (ICD-10 - F41.1) R/O Borderline Personality Disorder 11/13/2024 Nicotine dependence, unspecified, uncomplicated (ICD-10 - F17.200) R/O Borderline Personality Disorder 11/13/2024 Medication management (ICD-10 - Z79.899) R/O Borderline Personality Disorder Plan Of Treatment Next Appt Details Provider Name:Dena orozco, 11/19/2024 10:00:00 AM, [address] [facility] [address], [place], [address], Insurance Providers Payer Name Payer Address Payer Phone Subscriber Number Group Number Insured Name Patient Relationship to Insured Coverage Start Date Coverage End Date [employer] [address] [place] [phone] [id number] Lelo Mcintosh Self - patient is the insured [facility] [address] [place] [address] [id number] Lelo Mcintosh Self - patient is the insured 2 2 [employer] [facility] [employer] [address] [place] [address] [id number] Lelo Mcintosh Self - patient is the insured 2 2 [employer] [address] [place] [address] [id number] Lelo Mcintosh Self - patient is the insured 5 Medical (General) History Medical History History ICD Code pain achilles tendinitis Surgical History Surgery Date(Month/Year) Tubal ligation 2016 Hospitalization History Reason Date(Month/Year) Depression 2018 for depression/suicide attempt 2016 Child 2016 Child 2014 multiple psychiatric hospitalization as child/adolescent
[2024-11-15 09:38] LABS: Hematocrit 47.2 % (37.0-47.0); Hemoglobin 16.1 g/dL (12.0-15.0); Immature Granulocyte Percent A 0.3 % (0-0.5); Lymphocytes Absolute Auto 1.87 K/mm3 (0.9-3.2); Mean Corpuscular HGB Conc 34.1 g/dl (32-36); Mean Corpuscular Hemoglobin 30.0 pg (26-34); Mean Corpuscular Volume 87.9 fl (80-100); Nucleated Red Blood Cells Absolute Auto 0.000 K/mm3 (0.0-0.012); Nucleated Red Blood Cells Perc 0.0 % (0.0-0.2); Platelet Count Result 273 k/mm3 (150-375); Red Blood Count 5.37 M/mm3 (4.2-5.4); White Blood Count 11.6 K/mm3 (4.5-10.0)
[2024-11-15 09:52] LABS: Alanine Aminotransferase 19 U/L (6-35); Albumin Level 4.6 g/dL (3.5-5.1); Alkaline Phosphatase 74 U/L (38-126); Anion Gap 12 mmol/L (4-12); Aspartate Amino Transferase 22 U/L (14-36); Bilirubin,Total 0.6 mg/dL (0.2-1.3); Blood Urea Nitrogen 11 mg/dL (7-17); Calcium 9.3 mg/dL (8.4-10.2); Carbon Dioxide 21 mmol/L (22-30); Chloride 104 mmol/L (98-107); Estimated CRCL calculation 98 ml/min; Estimated Glomerular Filt Rate > 60; Glucose 125 mg/dL (65-110); Potassium 3.8 mmol/L (3.4-5.0); Sodium 137 mmol/L (137-145); Total Protein 8.1 g/dL (6.3-8.2)
[2024-11-15 10:14] LABS: Influenza A QL RT-PCR Negative (Negative); Influenza B QL RT-PCR Negative (Negative); RSV RNA, RT-PCR Negative (Negative); SARS-CoV-2 RNA PCR Negative (Negative)
[2024-11-15 10:18] LABS: INR 1.0; Partial Thromboplastin Time 31.1 Seconds (22.3-36.8); Prothrombin Time 13.1 Seconds (11.1-14.7)
[2024-11-15 11:48] LABS: BEDSIDEPREGUCG Negative (Negative)
[2024-11-15 12:23] LABS: Add Urine Microscopic? YES; Appearance Urine Cloudy (Clear); Glucose Urine UA Negative (Negative); Leukocyte Esterase Ur 1+ LEU/UL (Negative); Need Manual Microscopic Reviewed; Nitrate Urine Negative (Negative); Non Pathogenic Casts 0-2; Specific Grav Ur 1.019 (1.001-1.035)
== END 2024-11-15 12:38 | disposition home or self-care (01) ==
PROVIDERS: Emergency Provider Emergency Medicine
DX: R56.9 Unspecified convulsions (principal); Z11.52 Encounter for screening for COVID-19; T43.215A Adverse effect of selective serotonin and norepinephrine reuptake inhibitors, initial encounter; F43.10 Post-traumatic stress disorder, unspecified
CPT/HCPCS: 36415; 70450; 80053; 81001; 81025; 83605; 85025; 85610; 85730; 87086; 87637; 93005; 96374; 99284; J3360

== ENCOUNTER 2024-12-13 07:06 | Outpatient (CLI) | payer OTHER, SELFPAY ==
--- NOTE | ~2024-12-13 | US_ITS ---
US thyroid CLINICAL INDICATION:Goiter . COMPARISON: None. FINDINGS: Right and left thyroid lobes are normal in size and echotexture. The right thyroid lobe measures 5.5 x 2 x 2.4 cm and the left thyroid lobe measures 4.8 x 1.2 x 1.6 cm.. Right lateral nodule measures 2.1 x 1.6 x 1.7 cm left lobe nodule measures 1.3 x 0.7 x 1.3 cm No cervical lymphadenopathy is noted. IMPRESSION: TR for nodule within the inferior right thyroid lobe measuring up to 2.1 cm. Follow-up after knee is recommended. TR 3 nodule within the left thyroid lobe measures up to 1.3 cm. Reviewed, dictated and finalized at location S. IMPRESSION: TR for nodule within the inferior right thyroid lobe measuring up to 2.1 cm. Fo llow-up after knee is recommended. TR 3 nodule within the left thyroid lobe measures up to 1.3 cm.
== END 2024-12-13 07:07 | disposition home or self-care (01) ==
PROVIDERS: PCP Internal Medicine; Visit Provider Internal Medicine
DX: E04.2 Nontoxic multinodular goiter (principal); R56.9 Unspecified convulsions
CPT/HCPCS: 76536

== ENCOUNTER 2025-02-07 07:36 | Outpatient (CLI) | payer OTHER, SELFPAY ==
--- OUTSIDE RECORDS SUMMARY | 2024-11-19 10:00 | XMS_ITS ---
Author Organization [facility] Address [address] [place] [address] Phone [phone] Care Team Providers Care Tower Loader Operator Name Role Phone Hoda Bradley APRN Primary Care Provider [phone] Dena Choudhury [phone] REASON FOR VISIT Finish Psych Eval Social History Sex Observation Social History Observation Description Sex Observation Female Sexual Orientation Social History Observation Description Sexual Orientation Straight or heterose xual Gender Identity Social History Observation Description Gender Identity Female Encounters Date Time Type Facility Location Provider Diagnosis 11/19/2024 10:00 AM Office Visit [address] [address] Dena Choudhury Plan Of Treatment No Information Medical (General) History Medical History History ICD Code pain achilles tendinitis Surgical History Surgery Date(Month/Year) Tubal ligation 2016 Hospitalization History Reason Date(Month/Year) Depression 2018 for depression/suicide attempt 2016 Child 2016 Child 2014 multiple psychiatric hospitalization as child/adolescent Progress Notes * Lelo MCINTOSHDOB: [birth year] (29 yo F)Acc No.[id number]:11/19/2024 UNLOCKED PROGRESS NOTE Patient: Lelo CHAIDEZ Provider: Rosanne Choudhury DNP, APRN, JOLLY-JINNY :1995 A ge:29 Y S ex:Female Date:11/19/2024 Address:[address] [place], [place] [address] Pcp:Hoda Bradley Subjective: * Chief Complaints: * 1 . Finish Psych Eval. * Screening: * * Medical History: Objective: * Vitals: Assessment: Plan: * Treatment: * * Electronic signature of Daisha Cedillo , [id number] on 02/07/2025 at 07:40 AM FILM MASKER Sign off status: Pending * Provider: Rosanne Choudhury DNP, APRN, JOLLY-JINNY Date: Generated for Printing/Faxing/eTransmitting on: 04/10/2024 07:40 AM FILM MASKER
--- OUTSIDE RECORDS SUMMARY | 2024-12-09 16:30 | XMS_ITS ---
Author Organization [facility] Address [address] [place] [address] Phone [phone] Care Team Providers Care Seniour Insight Manager Name Role Phone Hoda Bradley APRN Primary Care Provider [phone] Dena Choudhury Unavailable [phone] REASON FOR VISIT 2 Week Psych Med Check Social History Sex Observation Social History Observation Description Sex Observation Female Sexual Orientation Social History Observation Description Sexual Orientation Straight or heterose xual Gender Identity Social History Observation Description Gender Identity Female Encounters Date Time Type Facility Location Provider Diagnosis 12/09/2024 04:30 PM Office Visit [address] [address] Dena Choudhury Plan Of Treatment No Information Medical (General) History Medical History History ICD Code pain achilles tendinitis Surgical History Surgery Date(Month/Year) Tubal ligation 2016 Hospitalization History Reason Date(Month/Year) Depression 2018 for depression/suicide attempt 2016 Child 2016 Child 2014 multiple psychiatric hospitalization as child/adolescent Progress Notes * Lelo MCINTOSHDOB: [birth year] (29 yo F)Acc No.[id number]:12/09/2024 UNLOCKED PROGRESS NOTE Patient: Lelo CHAIDEZ Provider: Rosanne Choudhury DNP, APRN, MARTINA :1995 A ge:29 Y S ex:Female Date:12/09/2024 Address:[address] [place], [place] [address] Pcp:Hoda Bradley Subjective: * Chief Complaints: * 1 . 2 Week Psych Med Check. * Screening: * * Medical History: Objective: * Vitals: Assessment: Plan: * Treatment: * * Electronic signature of Daisha Cedillo , [id number] on 02/07/2025 at 07:41 AM SYSTEMS TRAINER Sign off status: Pending * Provider: Rosanne Choudhury DNP, APRN, JOLLY-JINNY Date: Generated for Printing/Faxing/eTransmitting on: 04/10/2024 07:41 AM SYSTEMS TRAINER
--- OUTSIDE RECORDS SUMMARY | 2024-12-13 09:00 | XMS_ITS ---
Author Organization [facility] Address [address] [place] [address] Phone [phone] Care Team Providers Care Scratch Finisher Name Role Phone Hoda Bradley APRN Primary Care Provider [phone] Domenico Workman Unavailable [phone] REASON FOR VISIT 2 Week F/U Social History Sex Observation Social History Observation Description Sex Observation Female Sexual Orientation Social History Observation Description Sexual Orientation Straight or heterose xual Gender Identity Social History Observation Description Gender Identity Female Encounters Date Time Type Facility Location Provider Diagnosis 12/13/2024 09:00 AM Office Visit [address] [address] Domenico Workman Plan Of Treatment No Information Medical (General) History Medical History History ICD Code pain achilles tendinitis Surgical History Surgery Date(Month/Year) Tubal ligation 2016 Hospitalization History Reason Date(Month/Year) Depression 2018 for depression/suicide attempt 2016 Child 2016 Child 2014 multiple psychiatric hospitalization as child/adolescent Progress Notes * Lelo MCINTOSHDOB: [birth year] (29 yo F)Acc No.[id number]:12/13/2024 UNLOCKED PROGRESS NOTE Progress Notes Patient: Lelo CHAIDEZ Provider: Laura Workman :1995 A ge:29 Y S ex:Female Date:12/13/2024 Address:[address] [place], [place] [address] Pcp:Hoda Bradley Subjective: * Chief Complaints: * 1 . 2 Week F/U. * Screening: * * Medical History: Objective: * Vitals: Assessment: Plan: * Treatment: * * Electronic signature of Tricia Workman , [id number] on 02/07/2025 at 07:41 AM TEACHER EMOTIONALLY IMPAIRED Sign off status: Pending * Provider: Laura Workman Date: Generated for Durga domínguez/Karlos/Anthony on: 04/10/2024 07:41 AM TEACHER EMOTIONALLY IMPAIRED
--- OUTSIDE RECORDS SUMMARY | 2024-12-18 14:40 | XMS_ITS ---
Author Organization [facility] Address [address] [place] [address] Phone [phone] Care Team Providers Care Napkin Machine Operator Name Role Phone Hoda Bradley APRN Primary Care Provider [phone] Domenico Workman Unavailable [phone] REASON FOR VISIT 2 Week F/U Social History Sex Observation Social History Observation Description Sex Observation Female Sexual Orientation Social History Observation Description Sexual Orientation Straight or heterose xual Gender Identity Social History Observation Description Gender Identity Female Encounters Date Time Type Facility Location Provider Diagnosis 12/18/2024 02:40 PM Office Visit [address] [address] Domenico Workman Plan Of Treatment No Information Medical (General) History Medical History History ICD Code pain achilles tendinitis Surgical History Surgery Date(Month/Year) Tubal ligation 2016 Hospitalization History Reason Date(Month/Year) Depression 2018 for depression/suicide attempt 2016 Child 2016 Child 2014 multiple psychiatric hospitalization as child/adolescent Progress Notes * Lelo MCINTOSHDOB: [birth year] (29 yo F)Acc No.[id number]:12/18/2024 UNLOCKED PROGRESS NOTE Progress Notes Patient: Lelo CHAIDEZ Provider: Laura Workman :1995 A ge:29 Y S ex:Female Date:12/18/2024 Address:[address] [place], [place] [address] Pcp:Hoda Bradley Subjective: * Chief Complaints: * 1 . 2 Week F/U. * Screening: * * Medical History: Objective: * Vitals: Assessment: Plan: * Treatment: * * Electronic signature of Tricia Workman , [id number] on 02/07/2025 at 07:41 AM POLICE COMMUNICATIONS OPERATOR Sign off status: Pending * Provider: Laura Workman Date: 02/18/2024 Generated for Durga domínguez/Karlos/Anthony on: 04/10/2024 07:41 AM POLICE COMMUNICATIONS OPERATOR
--- OUTSIDE RECORDS SUMMARY | 2025-01-15 13:20 | XMS_ITS ---
Author Organization [facility] Address [address] [place] [address] Phone [phone] Care Team Providers Care Medicare Sales Representative Name Role Phone Hoda Bradley APRN Primary Care Provider [phone] Domenico Workman Unavailable [phone] REASON FOR VISIT last seen 11/28/24 2 week fu Social History Sex Observation Social History Observation Description Sex Observation Female Sexual Orientation Social History Observation Description Sexual Orientation Straight or heterose xual Gender Identity Social History Observation Description Gender Identity Female Encounters Date Time Type Facility Location Provider Diagnosis 01/15/2025 01:20 PM Office Visit [address] [address] Domenico Workman Plan Of Treatment No Information Medical (General) History Medical History History ICD Code pain achilles tendinitis Surgical History Surgery Date(Month/Year) Tubal ligation 2016 Hospitalization History Reason Date(Month/Year) Depression 2018 for depression/suicide attempt 2016 Child 2016 Child 2014 multiple psychiatric hospitalization as child/adolescent Progress Notes * Lelo MCINTOSHDOB: [birth year] (29 yo F)Acc No.[id number]:01/15/2025 UNLOCKED PROGRESS NOTE Progress Notes Patient: Lelo CHAIDEZ Provider: Laura Workamn :1995 A ge:29 Y S ex:Female Date:01/15/2025 Address:[address] [place], [place] [address] Pcp:Hoda Bradley Subjective: * Chief Complaints: * 1 . Last seen 11/28/24 2 week fu. * Screening: * * Medical History: Objective: * Vitals: Assessment: Plan: * Treatment: * * Electronic signature of Tricia Workman , [id number] on 02/07/2025 at 07:41 AM MANAGER MEDICAL DEVICE Sign off status: Pending * Provider: Laura Workman Date: 03/18/2024 Generated for Durga domínguez/Karlos/Anthony on: 1 04/10/2024 07:41 AM MANAGER MEDICAL DEVICE
--- OUTSIDE RECORDS SUMMARY | 2025-01-20 14:20 | XMS_ITS ---
Author Organization [facility] Address [address] [place] [address] Phone [phone] Care Team Providers Care Fermentologist Name Role Phone Hoda Bradley APRN Primary Care Provider [phone] oDmenico Workman Unavailable [phone] REASON FOR VISIT r/s from 01/15/25 last seen 11/28/24 2 week fu Social History Sex Observation Social History Observation Description Sex Observation Female Sexual Orientation Social History Observation Description Sexual Orientation Straight or heterose xual Gender Identity Social History Observation Description Gender Identity Female Encounters Date Time Type Facility Location Provider Diagnosis 01/20/2025 02:20 PM Office Visit [place] [address] [place] [address] Domenico Workman Plan Of Treatment No Information Medical (General) History Medical History History ICD Code pain achilles tendinitis Surgical History Surgery Date(Month/Year) Tubal ligation 2016 Hospitalization History Reason Date(Month/Year) Depression 2018 for depression/suicide attempt 2016 Child 2016 Child 2014 multiple psychiatric hospitalization as child/adolescent Progress Notes * Lelo MCINTOSHDOB: [birth year] (29 yo F)Acc No.[id number]:01/20/2025 UNLOCKED PROGRESS NOTE Progress Notes Patient: Lelo CHAIDEZ Provider: Laura Workman :1995 A ge:29 Y S ex:Female Date:01/20/2025 Address:[address] [place], [place] [address] Pcp:Hoda Bradley Subjective: * Chief Complaints: * 1 . R/s from 01/15/25 last seen 11/28/24 2 week fu. * Screening: * * Medical History: Objective: * Vitals: Assessment: Plan: * Treatment: * * Electronic signature of Tricia Workman , [id number] on 02/07/2025 at 07:40 AM TILE MECHANIC HELPER Sign off status: Pending * Provider: Laura Workman Date: 03/23/2024 Generated for Durga domínguez/Karlos/Anthony on: 04/10/2024 07:40 AM TILE MECHANIC HELPER
--- OUTSIDE RECORDS SUMMARY | 2025-02-07 07:41 | XMS_ITS | Clinical Summary ---
Author Organization [facility] Address [address] [place] [address] Care Team Providers Care Packing Line Operator Name Role Phone Tiara Pacheco MD Primary Care Provider [phone] Tiara Pacheco MD Unavailable Source Comments [facility],non-owned Affiliates and Associated Physician Practices is amultiple site organization consisting of ambulatory clinics and hospital sitesin [place], [place], [place] and [place]. This disclosure is being madepursuant to the Care Everywhere program and may not contain all information available regarding this patient. Last updated 17.[facility] Allergies No known active allergies Medications * [...] Overview (08/24/2010): Pt is transferred from OSH ([facility]) after taking an intentional overdose last [...] this morning. She will be transferred to [facility] today and be under the care of her psychiatrist, Dr. Underwood. Plan: -social work and psych to see her in the AM to determine longterm plan- mom does not want to bring [...] on file Legal Sex Female 11:59 AM PAN SHOVER Gender Identity Female 01/23/2018 12:21 PM PAN SHOVER Sexual Orientation Not on file Last Filed Vital Signs Vital Sign Reading Time Taken Comments Blood Pressure 110/76 01/23/2018 1:02 PM PAN SHOVER Pulse 79 01/23/2018 1:02 PM PAN SHOVER Temperature 36.8 C (98.2 F) 01/23/2018 1:02 PM PAN SHOVER Respiratory Rate 18 01/23/2018 1:02 PM PAN SHOVER Oxygen Saturation 99% 01/23/2018 1:02 PM PAN SHOVER Inhaled Oxygen Concentration - - Weight 98.4 kg (217 lb) 01/23/2018 1:02 PM PAN SHOVER Height 162.6 cm (5' 4) 01/23/2018 1:02 PM PAN SHOVER Body Mass Index 37.25 01/23/2018 1:02 PM PAN SHOVER Plan of Treatment Health Maintenance Due Date Last Done Comments HIV SCREENING 2009 HEPATITIS C SCREENING 07/25/2012 DTAP/TDAP/TD VACCINES (1 - Tdap) 2013 HEPATITIS B VACCINE (1 of 3 - 19+ 3-dose series) 2013 HPV VACCINE (1 - 3-dose SCDM series) 2021 DEPRESSION SCREENING 02/14/2024 COVID-19 VACCINE (1 - 2024-2 6 season) 2024 INFLUENZA VACCINE (#1) 2024 ZOSTER [...] to [place] [address] MEDICAID - [place] [facility] GENER[facility] Care Teams Packing Line Operator Relationship Specialty Start Date End Date Tiara Pacheco MD [address] [place] [address] PCP - General 04/15/21 Tiara Pacheco MD [address] [place] [address] Family Medicine 04/15/21
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
--- NOTE | 2025-02-08 13:04 | WPDNEUROLOGY ---
Neurology EEG Report General Information Date of Study: 02/07/25 TEST Electroencephalogram DIAGNOSIS seizure disorder CONDITION OF RECORDING neurodiagnostic lab EEG NUMBER [id number] CLINICAL HISTORY 29 years old who experienced seizure-like activity [place]. The patient thinks that anxiety was a trigger. During these episodes the patient is aware of what is happening and her lips quiver and the full body started to shake. She also has altered breathing such as gurgling or wheezing but she can follow commands. And episodes such as this was noted during hyperventilation during This recording. EEG DESCRIPTION During wakefulness the background activity consists of posterior dominant alpha rhythm at 9-10 hertz with an amplitude of 15-35 microvolts. It appears moderately formed and reactive to eye opening. Photic stimulation was performed during which symmetric driving response was seen at mid flash rates. Ventilation performed during which patient developed a seizure-like spell such as described in the history. Muscle tension artifacts were seen were no electrographic seizures were discernible. Patient did not progress to stage 2 sleep however was noted to be drowsy during which attenuation of background activity and vertex waves were seen. IMPRESSION This is a normal EEG obtained during awake and drowsy states patient was sleep deprived prior to the study. However during this hyperventilation patient had a spell similar to the seizure-like activity described above. This finding would be supportive of hyperventilation or anxiety as a cause for seizure-like activity however further studies such as video EEG recording or more prolonged EEG recording follow-up Electroencephalographic studies may be helpful.
== END 2025-02-07 07:37 | disposition home or self-care (01) ==
PROVIDERS: PCP Internal Medicine; Visit Provider Internal Medicine
DX: R56.9 Unspecified convulsions (principal)
CPT/HCPCS: 95816